=== PATIENT | female | born 1945 | race Caucasian/White ===

== ENCOUNTER 2017-08-05 09:32 | Outpatient (CLI) | payer MEDICARE ==
--- NOTE | 2017-08-05 12:55 | MMO ---
BILATERAL SCREENING MAMMOGRAM: INDICATION: Annual exam. COMPARISON: Prior exam dated 07/17/15. FINDINGS: The interpretation of this exam was assisted with computer-aided detection. There are scattered fibroglandular elements bilaterally. There are benign-appearing calcifications bilaterally. No suspicious mass, cluster of microcalcifications, or area of architectural distortion is evident. IMPRESSION: BI-RADS category 2 - benign findings. Recommend routine annual mammographic screening. BIRADS 2: Benign Finding(s) Routine annual screening mammography (for women over age 40) POS: [facility]
== END 2017-08-05 09:33 | disposition home or self-care (01) ==
LOC: SCSMAMMO 09:32
PROVIDERS: ATTEND Family Medicine
DX: Z12.31 Encounter for screening mammogram for malignant neoplasm of breast (principal)
CPT/HCPCS: 77067

== ENCOUNTER 2018-05-10 10:28 | Emergency (ER) | payer MEDICARE ==
[2018-05-10] MEDS ORDERED: Bacitracin Zinc 1 Packet ONE (11:46)
--- NOTE | 2018-05-10 13:04 | CT ---
CT BRAIN WITHOUT CONTRAST: Date: 05/10/18 HISTORY: Fall, headache. FINDINGS: No evidence of infarct, hemorrhage, midline shift, or abnormal extra-axial fluid collections are seen . The ventricular size is normal and the basilar cisterns are patent. The bony calvarium is intact. T here is mucosal disease in the paranasal sinuses. IMPRESSION: No CT evidence of acute intracranial process. POS: [facility]
== END 2018-05-10 12:38 | disposition home or self-care (01) ==
LOC: SCSER 10:28
DX: S00.93XA Contusion of unspecified part of head, initial encounter (principal); S80.211A Abrasion, right knee, initial encounter; I48.91 Unspecified atrial fibrillation; Z79.899 Other long term (current) drug therapy; Z79.01 Long term (current) use of anticoagulants; W19.XXXA Unspecified fall, initial encounter
CPT/HCPCS: 70450

== ENCOUNTER 2018-08-06 09:56 | Outpatient (CLI) | payer MEDICARE ==
--- NOTE | 2018-08-06 11:41 | MMO ---
Bilateral MAMMO Bilat Screen [facility]. CLINICAL HISTORY: Patient is 73 years old and is seen for screening. The patient has no family history of breast cancer. The patient has no personal history of cancer. VIEWS: The views performed were: bilateral craniocaudal and bilateral mediolateral oblique. FILMS COMPARED: The present examination has been compared to prior imaging studies performed at [facility] on 07/26/2013, 07/12/2014, 07/17/2015, 08/05/2016 and 08/05/2017. This study has been interpreted with the assistance of computer-aided detection. MAMMOGRAM FINDINGS: There are scattered fibroglandular densities. There are no suspicious masses, suspicious calcifications, or new areas of architectural distortion. IMPRESSION: THERE IS NO MAMMOGRAPHIC EVIDENCE OF MALIGNANCY. A ROUTINE FOLLOW-UP MAMMOGRAM IN 1 YEAR IS RECOMMENDED. ACR BI-RADS Category 1 - Negative MAMMOGRAPHY NOTE: 1. A negative mammogram report should not delay a biopsy if a dominant of clinically suspicious mass is present. 2. Approximately 10% to 15% of breast cancers are not detected by mammography. 3. Adenosis and dense breasts may obscure an underlying neoplasm.
== END 2018-08-06 09:57 | disposition home or self-care (01) ==
LOC: SCSMAMMO 09:56
PROVIDERS: ATTEND Family Medicine
DX: Z12.31 Encounter for screening mammogram for malignant neoplasm of breast (principal)
CPT/HCPCS: 77067

== ENCOUNTER 2018-09-28 07:42 | Emergency (ER) | payer MEDICARE | END 2018-09-28 08:38 | disposition home or self-care (01) | LOC: SCSER 07:42 | DX: I10 Essential (primary) hypertension (principal); I48.91 Unspecified atrial fibrillation; Z79.01 Long term (current) use of anticoagulants; Z79.899 Other long term (current) drug therapy | CPT/HCPCS: 99283 ==

== ENCOUNTER 2019-02-10 17:53 | Inpatient (IN) | payer MEDICARE ==
[2019-02-10 18:30] LABS: #Basophils 0.1 thou/uL (0.0-0.2); #Lymphocytes 2.3 thou/uL (1.20-3.40); #Monocytes 0.6 thou/uL (0.11-0.59); #Neutrophils 11.5 thou/uL (1.40-6.50); %Basophils 0.8 % (0.0-1.0); %Eosinophils 0.3 % (0.0-10.0); %Lymphocytes 15.9 % (21.0-51.0); Hemoglobin 13.7 g/dL (12.0-16.0); Mean Corpuscular HGB CONC 32.4 g/dL (32.0-36.0); Mean Corpuscular Hemoglobin 31.1 pg (27.0-31.0); Mean Corpuscular Volume 96.1 fL (78.0-98.0); Mean Platelet Volume 8.7 fL (7.4-10.4); Platelet Count 206 thou/uL (130-400); RBC Distribution Width 12.3 % (11.5-14.5); Red Blood Cell (RBC) Count 4.41 mill/uL (4.20-5.40); White Blood Cell (WBC) Count 14.5 thou/uL (4.8-10.8)
[2019-02-10] MEDS ORDERED: Morphine 10 MG/ML VIAL ONE (18:33)
[2019-02-10 18:46] LABS: ALT (SGPT) 14 U/L (8-55); AST (SGOT) 12 U/L (5-34); Albumin 4.2 g/dL (3.4-4.8); Alkaline Phosphatase 82 U/L (40-110); Anion Gap 15 mmol/L (10-20); BUN (Urea Nitrogen) 20 mg/dL (9.8-20.1); Bilirubin, Total 0.5 mg/dL (0.2-1.2); Calc. Creatinine Clearance 0 mL/min (70-130); Calcium 9.4 mg/dL (7.8-10.44); Carbon Dioxide 26 mmol/L (23-31); Chloride 103 mmol/L (98-107); Estimated GFR-MDRD 75; Globulin 3.1 g/dL (2.4-3.5); Glucose 132 mg/dL (83-110); Potassium 3.9 mmol/L (3.5-5.1); Protein, Total 7.3 g/dL (6.0-8.3); Sodium 140 mmol/L (136-145)
[2019-02-10] MEDS ORDERED: Sodium Chloride 0.9% 100 ML ONE (18:47)
[2019-02-10] MEDS ORDERED: Piperacillin/Tazobactam 4.5 GM VIAL ONE (18:47)
[2019-02-10] MEDS ORDERED: Clindamycin/D5W 900 mg/50 ml Premix Bag ONE (19:20)
[2019-02-10] MEDS ORDERED: Lorazepam 2 MG/ML VIAL ONE (23:13)
[2019-02-11] MEDS ORDERED: Ibuprofen 200 MG TAB PO PRN (00:25)
[2019-02-11] MEDS ORDERED: hydrALAZINE 20 MG/ML VIAL SLOW IVP PRN (00:25)
[2019-02-11] MEDS ORDERED: Ondansetron PF 4 MG/2 ML Vial IVP PRN (00:25)
[2019-02-11] MEDS ORDERED: HYDROcodone/Acetaminophen 7.5/325 mg Tablet PO PRN (00:25)
[2019-02-11] MEDS ORDERED: Ondansetron ODT 4 MG TAB PO PRN (00:25)
[2019-02-11] MEDS ORDERED: Acetaminophen 500 MG TAB PO PRN (00:25)
[2019-02-11 02:07] VITALS: BMI 34.2
[2019-02-11] MEDS: Piperacillin/Tazobactam 3.375 GM in Sodium Chloride 0.9% 100 ML IVPB SCH ×4 (03:28→21:47)
[2019-02-11] MEDS ORDERED: Piperacillin/Tazobactam 3.375 GM in Sodium Chloride 0.9% 100 ML IVPB SCH (06:00)
[2019-02-11 06:19] LABS: Anion Gap 8 mmol/L (10-20); BUN (Urea Nitrogen) 14 mg/dL (9.8-20.1); Calc. Creatinine Clearance 117 mL/min (70-130); Calcium 8.6 mg/dL (7.8-10.44); Carbon Dioxide 27 mmol/L (23-31); Chloride 106 mmol/L (98-107); Estimated GFR-MDRD 84; Glucose 124 mg/dL (83-110); Sodium 137 mmol/L (136-145)
[2019-02-11 06:28] LABS: Band 11 % (5-11); Lymphocytes 7 % (21-51); MDiff Complete? YES; Mean Corpuscular HGB CONC 34.4 g/dL (32.0-36.0); Mean Corpuscular Hemoglobin 32.5 pg (27.0-31.0); Mean Corpuscular Volume 94.5 fL (78.0-98.0); Mean Platelet Volume 7.5 fL (7.4-10.4); Monocytes 5 % (0-10); Neutrophil 77 % (42-75); Platelet Count 177 thou/uL (130-400); RBC Distribution Width 11.9 % (11.5-14.5); Red Blood Cell (RBC) Count 3.69 mill/uL (4.20-5.40); White Blood Cell (WBC) Count 11.9 thou/uL (4.8-10.8)
[2019-02-11] MEDS: Famotidine 20 MG TAB PO SCH ×2 (08:42→20:26)
[2019-02-11] MEDS: Losartan 25 MG TAB PO SCH (08:42)
[2019-02-11] MEDS: Multivit, Therapeutic 1 TAB PO SCH (08:42)
[2019-02-11] MEDS: Vancomycin HCl 1 GM in Premix Bag 1 BAG IVPB SCH ×2 (08:43→20:27)
--- NOTE | 2019-02-11 08:54 | HP ---
PRIMARY CARE PROVIDER: Dr. Andrae Andres. CHIEF COMPLAINT: Right lower extremity pain. HISTORY OF PRESENT ILLNESS: This is a 73-year-old female, who presents to [facility] complaining of right lower extremity pain, swelling, redness, and warmth, which began in the last 24 hours. The patient states that she originally scraped her right lower leg on a adventism pew tearing the skin on the surface. She was evaluated by her primary care provider, who did local debridement and placed her on Bactrim DS for approximately seven days. The patient states the wound improved and the leg seemed to heal appropriately. On 02/10/2019, the patient noted her leg to be warm to touch and noticeably red with associated fever, chills, and body aches. The patient presented to the emergency room and was noted with cellulitis of the right lower extremity. The patient received vancomycin, clindamycin, and Zosyn in the emergency room. The patient denied any recent travel history, exposures, or family members with similar symptoms. PAST MEDICAL HISTORY: 1. Atrial fibrillation, status post cardiac ablation on chronic anticoagulation with Xarelto. 2. Hypertension. 3. Chronic kidney disease, stage 2. PAST SURGICAL HISTORY: Status post cardiac ablation secondary to atrial fibrillation. CURRENT MEDICATIONS: 1. Losartan 12.5 mg p.o. daily. 2. Xarelto 20 mg p.o. daily. ALLERGIES: NO KNOWN DRUG ALLERGIES. FAMILY HISTORY: Positive for hypertension. SOCIAL HISTORY: , resides in [place], [place]. Retired. No current alcohol, tobacco, or illicit drug use. REVIEW OF SYSTEMS: CONSTITUTIONAL: Negative for weight loss or gain, ability to conduct usual activities. SKIN: Negative for rash, itching. EYES: Negative for double vision, pain. ENT/MOUTH: Negative for nose bleeding, neck stiffness, pain, tenderness. CARDIOVASCULAR: Negative for palpitations, dyspnea on exertion, orthopnea. RESPIRATORY: Negative for shortness of breath, wheezing, cough, hemoptysis, fever or night sweats. GASTROINTESTINAL: Negative for poor appetite, abdominal pain, heartburn, nausea, vomiting, constipation, or diarrhea. GENITOURINARY: Negative for urgency, frequency, dysuria, nocturia. MUSCULOSKELETAL: Negative for pain, swelling. NEUROLOGIC/PSYCHIATRIC: Negative for anxiety, depression. ALLERGY/IMMUNOLOGIC: Negative for skin rash, bleeding tendency. Otherwise negative except as stated per HPI. PHYSICAL EXAMINATION: VITAL SIGNS: On admission, blood pressure 145/76, pulse 80, respiratory rate 17, temperature 99.0 degrees Fahrenheit, and O2 saturation 99% on room air. GENERAL APPEARANCE: This is a 73-year-old female, alert, and oriented x3, pleasant, responsive, in no acute distress. HEENT: Pupils are equal, round, reactive to light and accommodation. Extraocular muscles are intact. No scleral icterus. No conjunctival injection. Nares are patent. OP is clear. Teeth in good repair. NECK: Supple. No cervical adenopathy. No thyromegaly. No carotid bruits. No JVD appreciated. Cervical spine with full active and passive range of motion. No meningeal signs noted. CHEST: Lungs are clear to auscultation bilaterally. CARDIOVASCULAR: S1 and S2 without noted murmur, rub, or gallop. ABDOMEN: Obese, soft, nontender, and nondistended. Bowel sounds are positive in all 4 quadrants. There is no hepatosplenomegaly. No abdominal bruits. No rebound or guarding appreciated. EXTREMITIES: Right lower extremity with erythema with warmth to touch of the lower third of the anterior morales and circumferential area approximately 80% of the circumference of the right lower leg. Positive tenderness to palpation. Small dried abrasion on the anterior morales noted. No expressible discharge. Pulses palpable distally at the dorsalis pedis, posterior tibial, and popliteal arteries bilaterally. Capillary refill less than 2 seconds. NEUROLOGIC: Cranial nerves 2 through 12 are grossly intact. No focal or lateralizing signs appreciated. PERTINENT LABORATORY AND X-RAY FINDINGS: Basic metabolic profile within normal limits. Lactic acid level 1.4. LFTs within normal limits. CBC showed a white blood cell count of 14.5, hemoglobin 14, hematocrit 42, platelet count 206 with 79% neutrophils. D-dimer 0.43. ASSESSMENT/PLAN: 1. Right lower extremity cellulitis. We will admit to the medical floor. Continue vancomycin 1 g IV q.12 hours with additional Zosyn 3.375 g IV q.6 hours. Await blood culture results. Continue serial monitoring. 2. Hypertension. Resume losartan 12.5 mg p.o. daily. Serial blood pressure monitoring. 3. Chronic anticoagulation. Continue Xarelto 20 mg p.o. daily. 4. Chronic kidney disease, stage 2. Avoid nephrotoxic agents and limit contrast exposure. Repeat creatinine in the a.m. 5. Prophylaxis. Hold SCDs due to right lower extremity cellulitis. Pepcid 20 mg p.o. b.i.d. 6. Code status is full. Surrogate medical decision maker is the patient's spouse. Job ID: [id number]
--- NOTE | 2019-02-11 17:41 | PDOC.EVN ---
Event Note - Event Note Event Note: Seen and examined. Continue IV antibiotics. await cultures.
[2019-02-11] MEDS: Rivaroxaban 10 MG TAB PO SCH (20:26)
[2019-02-12] MEDS: Piperacillin/Tazobactam 3.375 GM in Sodium Chloride 0.9% 100 ML IVPB SCH (04:47)
[2019-02-12 07:17] LABS: #Basophils 0.1 thou/uL (0.0-0.2); #Eosinphils 0.1 thou/uL (0.0-0.7); #Lymphocytes 1.9 thou/uL (1.20-3.40); #Monocytes 0.7 thou/uL (0.11-0.59); #Neutrophils 3.6 thou/uL (1.40-6.50); %Eosinophils 0.8 % (0.0-10.0); %Lymphocytes 29.9 % (21.0-51.0); %Monocytes 11.5 % (0.0-10.0); %Neutrophils 56.8 % (42.0-75.0); Hemoglobin 12.2 g/dL (12.0-16.0); Mean Corpuscular HGB CONC 33.7 g/dL (32.0-36.0); Mean Corpuscular Hemoglobin 32.1 pg (27.0-31.0); Mean Corpuscular Volume 95.1 fL (78.0-98.0); Mean Platelet Volume 7.4 fL (7.4-10.4); Platelet Count 178 thou/uL (130-400); RBC Distribution Width 11.8 % (11.5-14.5); Red Blood Cell (RBC) Count 3.81 mill/uL (4.20-5.40); White Blood Cell (WBC) Count 6.4 thou/uL (4.8-10.8)
[2019-02-12] MEDS: Losartan 25 MG TAB PO SCH (08:10)
[2019-02-12] MEDS: Multivit, Therapeutic 1 TAB PO SCH (08:11)
[2019-02-12] MEDS: Famotidine 20 MG TAB PO SCH ×2 (08:11→19:59)
[2019-02-12] MEDS: Vancomycin HCl 1 GM in Premix Bag 1 BAG IVPB SCH (08:12)
[2019-02-12] MEDS: Linezolid 600 MG TAB PO SCH ×2 (12:16→19:59)
--- NOTE | 2019-02-12 19:40 | PDOC.HOSPP ---
- Subjective Encounter Date: 02/12/19 Encounter Time: 09:38 Subjective: 73 y/o female with atrial fibrillation s/p ablation on chronic anticoagulation admitted with acute worsening of right leg redness after completion of oral antibiotics. Impression of cellulitis was made and she was started on be=road spectrum antibiotics. Feeling better. - Objective Vital Signs & Weight: Vital Signs (12 hours) Temp Pulse Resp BP Pulse Ox 02/12/19 08:03 98.3 F 74 20 120/71 95 Weight Weight 218 lb 7 oz I&O: 02/11/19 02/12/19 02/13/19 06:59 06:59 06:59 Intake Total 880 1120 Balance 880 1120 Result Diagrams: 02/12/19 07:02 02/11/19 05:40 Hospitalist ROS - Medication Medications: Active Medications Generic Name Dose Route Start Last Admin Trade Name Freq PRN Reason Stop Dose Admin Acetaminophen 1,000 mg 02/11/19 00:25 02/12/19 08:12 Tylenol PO 1,000 mg Q6H PRN Administration Mild Pain (1-3) Famotidine 20 mg 02/11/19 09:00 02/12/19 08:11 Pepcid PO 20 mg BID AMEE Administration Linezolid 600 mg 02/12/19 09:00 02/12/19 12:16 Zyvox PO 600 mg Q12HR AMEE Administration Losartan Potassium 12.5 mg 02/11/19 09:00 02/12/19 08:10 Cozaar PO 12.5 mg DAILY AMEE Administration Multivitamins 1 tab 02/11/19 09:00 02/12/19 08:11 Theragran PO 1 tab DAILY AMEE Administration Rivaroxaban 20 mg 02/11/19 21:00 02/11/19 20:26 Xarelto PO 20 mg QPM AMEE Administration - Exam General Appearance: awake alert Eye: PERRL, anicteric sclera ENT: normocephalic atraumatic Neck: supple, symmetric, no JVD Heart: RRR Respiratory: no wheezes, no rales, no ronchi, normal chest expansion, no tachypnea Gastrointestinal: soft, non-tender, non-distended, normal bowel sounds Extremities: no cyanosis, no edema Skin - other findings: regressing right distal leg erythema noted Neurological: cranial nerve grossly intact, no focal deficits Psychiatric: normal affect, A&O x 3 Hosp A/P (1) Cellulitis of right leg Code(s): L03.115 - CELLULITIS OF RIGHT LOWER LIMB Status: Acute (2) HTN (hypertension) Code(s): I10 - ESSENTIAL (PRIMARY) HYPERTENSION Status: Acute (3) Chronic anticoagulation Code(s): Z79.01 - ALF (CURRENT) USE OF ANTICOAGULANTS Status: Acute (4) Leg pain Status: Acute - Plan Startr oral Linezolid. DC IV zosyn and vancomycin. For discharge tomorrow if erythema continues to regress on oral antibiotics. Continue analgesic and limb elevation
[2019-02-12] MEDS: Rivaroxaban 10 MG TAB PO SCH (19:59)
[2019-02-13 06:40] LABS: #Basophils 0.1 thou/uL (0.0-0.2); #Eosinphils 0.1 thou/uL (0.0-0.7); #Lymphocytes 1.8 thou/uL (1.20-3.40); #Monocytes 0.5 thou/uL (0.11-0.59); #Neutrophils 3.3 thou/uL (1.40-6.50); %Basophils 1.2 % (0.0-1.0); %Lymphocytes 30.8 % (21.0-51.0); %Monocytes 8.9 % (0.0-10.0); %Neutrophils 57.2 % (42.0-75.0); Hemoglobin 12.4 g/dL (12.0-16.0); Mean Corpuscular HGB CONC 33.8 g/dL (32.0-36.0); Mean Corpuscular Hemoglobin 32.1 pg (27.0-31.0); Mean Corpuscular Volume 94.9 fL (78.0-98.0); Mean Platelet Volume 7.9 fL (7.4-10.4); Platelet Count 188 thou/uL (130-400); RBC Distribution Width 11.7 % (11.5-14.5); Red Blood Cell (RBC) Count 3.87 mill/uL (4.20-5.40); White Blood Cell (WBC) Count 5.8 thou/uL (4.8-10.8)
[2019-02-13] MEDS: Losartan 25 MG TAB PO SCH (08:38)
[2019-02-13] MEDS: Linezolid 600 MG TAB PO SCH (08:39)
[2019-02-13] MEDS: Multivit, Therapeutic 1 TAB PO SCH (08:39)
[2019-02-13] MEDS: Famotidine 20 MG TAB PO SCH (08:39)
[2019-02-13] MEDS ORDERED: hydrOXYzine 25 MG TAB PO SCH (10:45)
[2019-02-13 11:04] VITALS: BP 124/72; TEMP 97.8
--- NOTE | 2019-02-13 15:41 | DIS ---
DATE OF ADMISSION: 02/10/2019 DATE OF DISCHARGE: 02/13/2019 PRIMARY CARE PHYSICIAN: Dr. Andrae Andres. DISCHARGE DIAGNOSES: 1. Right leg cellulitis. present on admission. 2. Hypertension. 3. Chronic anticoagulation with Xarelto. 4. Atrial fibrillation, status post ablation. 5. Left leg pain. HOSPITAL COURSE: A 73-year-old female with known history of atrial fibrillation , status post ablation on chronic anticoagulation, admitted with acute worsening of right leg redness. The patient was recently diagnosed with right leg cellulitis and started on oral antibiotics, which she completed with improvement in the right leg cellulitis and erythema. However, a day after completion of antibiotics, the patient reported worsening redness associated with severe pain hence presentation to the ER, where she was found to have cellulitis. The patient was started on broad-spectrum antibiotic therapy with intravenous vancomycin and Zosyn with improvement of symptoms. She was later transitioned to oral linezolid and observed in the hospital with continued regression of the erythema, hence was subsequently discharged home. PHYSICAL EXAMINATION: VITAL SIGNS: Temperature 97.8, pulse rate 81, respiratory rate 20, SpO2 of 94% on room air, and blood pressure is 124/72. GENERAL: Obese female, in no obvious distress. Afebrile. Anicteric. Acyanotic. HEENT: Normocephalic and atraumatic. Oral mucosa is moist. CARDIOVASCULAR: Regular rhythm and rate with normal heart sounds, one and two. Soft systolic murmur noted. RESPIRATORY: Good air entry bilaterally with no crackle or rhonchi or use of accessory muscles. GI: Obese, soft, nontender, and nondistended with normal bowel sounds. EXTREMITIES: Right distal leg regressing erythema noted. Mild anterior leg tenderness noted. Other extremities are grossly normal, atraumatic with no edema or erythema. TELEVISION REPORTER: Conscious, alert, and oriented x3 with appropriate mental status. Cranial nerves II through XII are grossly intact. The patient is ambulant. DISCHARGE CONDITION: Improved. DISCHARGE DISPOSITION: Home. FOLLOWUP: With PCP in 7 days. DISCHARGE MEDICATIONS: 1. Losartan 12.5 mg p.o. daily. 2. Multivitamin two tablets p.o. daily. 3. Xarelto 20 mg p.o. daily at bedtime. 4. Linezolid 600 mg b.i.d. for 10 days. 5. Acetaminophen 1000 mg p.o. q.6 p.r.n. for pain. 6. Discharge took more than 30 minutes. Job ID: [id number] MTDD
--- NOTE | 2019-02-14 22:50 | PQF ---
MEÑO BRYANT OBI, CHIZOBA C [id number] CLINICAL DOCUMENTATION CLARIFICATION FORM: POST DISCHARGE Addendum to original discharge summary date: ____ Late entry note date: __ DATE: 02/14/19 ATTN: Jenaro Cueva Obi Please exercise your independent, professional judgment in responding to the clarification form. Clinical indicators are provided on the bottom of this form for your review Can you please further clarify if right lower extremity cellulitis is a complication of recent debridement of not? Please check appropriate box(s): [ ] Right lower extremity cellulitis is a complication of recent debridement [ ] Right lower extremity cellulitis is not a complication of recent debridement [ ] Other diagnosis [ x ] Unable to determine In addition, please specify: Present on Admission (POA): [ x ] Yes [ ] No [ ] Unable to determine CLINICAL INDICATORS - SIGNS / SYMPTOMS / LABS H and P pg.1- Complaining of right lower extremity pain, swelling, redness and warmth which began I the last 24hours H and P pg.1- She was evaluated by her primary care provider, who did local debridement and placed her on bactrim DS for approximately 7 days. H and P pg.1- 02/10/19 the patient noted her leg to be warm to touch and noticeably red with fever, chills and body aches RISK FACTORS Right lower extremity Cellulitis- H and P pg.3 Hypertension- H and P pg1 CKD 3- H and P pg.1.1 Atrial fibrillation- H and P pg.1 TREATMENT: IV Fluids- MAY 31 Broad spectrum antibiotics- DS pg.1 (This form is maintained as a part of the permanent medical record) 2014 [employer]. All Rights Reserved David [email or web address] [not provided] MTDD
== END 2019-02-13 11:16 | disposition home or self-care (01) | DRG 603 ==
LOC: SCSER 17:53 → T4-A 19:08
PROVIDERS: ADMIT Internal Medicine; ATTEND Internal Medicine
DX: L03.115 Cellulitis of right lower limb (principal); I48.91 Unspecified atrial fibrillation; I12.9 Hypertensive chronic kidney disease with stage 1 through stage 4 chronic kidney disease, or unspecified chronic kidney disease; N18.2 Chronic kidney disease, stage 2 (mild); E66.9 Obesity, unspecified; Z79.01 Long term (current) use of anticoagulants; Z68.34 Body mass index [BMI] 34.0-34.9, adult
CPT/HCPCS: 36415; 80048; 80053; 83605; 85007; 85025; 85027; 85379; 87040; 90471; 90662; 96365; 96366; 96368; 96375; G0008; J2060; J2270; J2543; J3370; J3490

== ENCOUNTER 2019-12-05 06:25 | Outpatient (CLI) | payer MEDICARE, OTHER ==
[2019-12-05 10:59] LABS: #Basophils 0.1 thou/uL (0.0-0.2); #Eosinphils 0.2 thou/uL (0.0-0.7); #Monocytes 0.5 thou/uL (0.11-0.59); %Basophils 1.2 % (0.0-1.0); %Eosinophils 2.4 % (0.0-10.0); %Lymphocytes 25.4 % (21.0-51.0); %Monocytes 6.9 % (0.0-10.0); %Neutrophils 64.1 % (42.0-75.0); Hemoglobin 14.5 g/dL (12.0-16.0); Mean Corpuscular Hemoglobin 31.9 pg (27.0-31.0); Mean Corpuscular Volume 96.7 fL (78.0-98.0); Mean Platelet Volume 8.5 fL (7.4-10.4); Platelet Count 220 thou/uL (130-400); RBC Distribution Width 12.1 % (11.5-14.5); Red Blood Cell (RBC) Count 4.54 mill/uL (4.20-5.40); White Blood Cell (WBC) Count 7.8 thou/uL (4.8-10.8)
[2019-12-05 11:41] LABS: BUN (Urea Nitrogen) 17 mg/dL (9.8-20.1); Calc. Creatinine Clearance 0 mL/min (70-130); Carbon Dioxide 24 mmol/L (23-31); Chloride 106 mmol/L (98-107); Estimated GFR-MDRD 80; Glucose 117 mg/dL (83-110); Potassium 4.1 mmol/L (3.5-5.1); Sodium 141 mmol/L (136-145)
[2019-12-05 12:44] LABS: Anion Gap 15 mmol/L (10-20)
[2019-12-05 16:53] LABS: SARS-CoV-2 MS2 Positive; SARS-CoV-2 N Gene Negative; SARS-CoV-2 S Gene Negative; SARS-CoV-2 by NAA Not Detected (NotDetected); SARS-CoV-2 orf1ab Negative
== END 2019-12-05 06:26 | disposition home or self-care (01) ==
LOC: LABBT 06:25
PROVIDERS: ATTEND Internal Medicine Cardiovascular Disease
DX: Z01.812 Encounter for preprocedural laboratory examination (principal); Z20.828 Contact with and (suspected) exposure to other viral communicable diseases; I48.91 Unspecified atrial fibrillation
CPT/HCPCS: 80048; 85025; U0003; 87635

== ENCOUNTER 2019-12-08 10:52 | Day surgery (SDC) | payer MEDICARE ==
[2019-12-05 15:46] VITALS: BMI 34.2
[2019-12-08] MEDS ORDERED: PROPOFOL 20 ML ONE (11:58)
--- NOTE | 2019-12-10 08:04 | TCOM ---
DATE OF STUDY: 12/08/2019 PREOPERATIVE DIAGNOSIS: Atrial fibrillation. POSTOPERATIVE DIAGNOSIS: Sinus rhythm. PROCEDURES PERFORMED: Synchronized cardioversion. DESCRIPTION OF OPERATION: Ms. Keith was seen an outpatient for the above procedure. Consent was noted. I discussed the procedure in the full detail Ms. Keith as an outpatient. The patient underwent successful synchronized cardioversion on the propofol at 150 joules. IMPRESSION: Successful synchronized cardioversion. Job ID: [id number]
--- NOTE | 2019-12-12 15:26 | EKG ---
Test Reason : POST CARDIOVERSION Blood Pressure : / mmHG Vent. Rate : 064 BPM Atrial Rate : 064 BPM P-R Int : 210 ms QRS Dur : 090 ms QT Int : 438 ms P-R-T Axes : 078 -06 023 degrees QTc Int : 451 ms Sinus rhythm with 1st degree A-V block Possible Inferior infarct , age undetermined Abnormal ECG Confirmed by LAUREN CALLES M.D. ([id number]) on 12/12/2019 3:25:35 PM Referred By: YURI Confirmed By:LAUREN CALLES M.D.
== END 2019-12-08 13:20 | disposition home or self-care (01) ==
LOC: SDC 10:52
PROVIDERS: ATTEND Internal Medicine Cardiovascular Disease
PROC: 5A2204Z Restoration of Cardiac Rhythm, Single (ICD-10-PCS; principal; 2019-12-08)
DX: I48.0 Paroxysmal atrial fibrillation (principal); I34.0 Nonrheumatic mitral (valve) insufficiency; I10 Essential (primary) hypertension; F40.240 Claustrophobia; Z79.01 Long term (current) use of anticoagulants; Z79.899 Other long term (current) drug therapy
CPT/HCPCS: 92960; 93005; 93010; J2704

== ENCOUNTER 2022-04-29 11:14 | Outpatient (CLI) | payer MEDICARE ==
[2022-04-29 12:49] LABS: Mean Corpuscular HGB CONC 33.6 g/dL (32.0-36.0); Mean Corpuscular Hemoglobin 32.1 pg (27.0-33.0); Mean Corpuscular Volume 95.6 fl (81.6-98.3); Mean Platelet Volume 10.4 fl (7.4-10.4); Platelet Count 205 10x3/uL (150-450); RBC Distribution Width 12.3 % (11.5-14.5); Red Blood Cell (RBC) Count 4.36 10x6/uL (3.90-5.03)
[2022-04-29 12:51] LABS: Bilirubin Neg (Negative); Blood, Urine 10 (Negative); Clarity Slightly Cloudy (Clear); Glucose, Urine (Dipstick) Normal (Negative); Ketone, Urine Negative (Negative); Leukocyte 100 (Negative); Nitrite Negative (Negative); Protein, Urine (Dipstick) Negative (Neg-Trace); Urobilinogen Normal mg/dL (Less than 2); pH, Urine 6.5 (5.0-9.0)
[2022-04-29 13:03] LABS: INR-International Normal Ratio 1.1; PTT 28.9 sec (22.0-33.0); Prothrombin Time 11.5 sec (9.5-12.1)
[2022-04-29 13:11] LABS: ALT (SGPT) 19 U/L (8-55); AST (SGOT) 22 U/L (5-34); Alkaline Phosphatase 66 U/L (40-110); Anion Gap 13 mmol/L (10-20); BUN (Urea Nitrogen) 14 mg/dL (9.8-20.1); Bilirubin, Total 0.6 mg/dL (0.2-1.2); Calc. Creatinine Clearance 0 mL/min (70-130); Calcium 8.8 mg/dL (7.8-10.44); Carbon Dioxide 25 mmol/L (23-31); Chloride 106 mmol/L (98-107); Estimated GFR 87; Globulin 2.9 g/dL (2.4-3.5); Glucose 86 mg/dL (83-110); Potassium 4.4 mmol/L (3.5-5.1); Protein, Total 6.9 g/dL (5.8-8.1); Sodium 140 mmol/L (136-145)
== END 2022-04-29 11:15 | disposition home or self-care (01) ==
LOC: LABBT 11:14
PROVIDERS: ATTEND Internal Medicine Cardiovascular Disease
DX: Z01.818 Encounter for other preprocedural examination (principal); I48.91 Unspecified atrial fibrillation
CPT/HCPCS: 80053; 81003; 85027; 85610; 85730; 93005; 93010

== ENCOUNTER 2022-04-29 11:30 | Inpatient (IN) | payer MEDICARE ==
[2022-05-05 09:56] VITALS: BMI 36.0
[2022-05-07] MEDS ORDERED: Midazolam HCl 2 mg/2 ml Vial ONE ×2 (06:48→07:54)
[2022-05-07] MEDS ORDERED: SUGAMMADEX SODIUM 200 MG/2 ML VIAL ONE (06:49)
[2022-05-07] MEDS ORDERED: Norepinephrine 4 MG/4 ML VIAL ONE (06:49)
[2022-05-07] MEDS ORDERED: fentaNYL PF 100 MCG/2 ML SYRINGE ONE (06:49)
[2022-05-07] MEDS ORDERED: PROPOFOL 200 MG/20 ML VIAL ONE (07:57)
[2022-05-07] MEDS ORDERED: Dexamethasone 20 MG/5 ML VIAL ONE (07:57)
[2022-05-07] MEDS ORDERED: Ondansetron PF 4 MG/2 ML Vial ONE (07:57)
[2022-05-07] MEDS ORDERED: Rocuronium Bromide 10 MG/ML (10ML VIAL) ONE (07:57)
[2022-05-07] MEDS ORDERED: Lidocaine 1% PF 5 ML VIAL ONE (07:57)
[2022-05-07] MEDS ORDERED: Iopamidol 370 76% 100 ML VIAL ONE (08:56)
[2022-05-07] MEDS ORDERED: Protamine Sulfate 50 MG/5 ML VIAL ONE (11:00)
[2022-05-07] MEDS ORDERED: Heparin 10,000 UNITS/ 10 ML VIAL ONE (11:00)
[2022-05-07] MEDS ORDERED: CEFAZOLIN 1 GM VIAL ONE (11:00)
[2022-05-07] MEDS ORDERED: Acetaminophen/Codeine 30-300mg Tablet ONE (11:08)
== END 2022-05-07 14:53 | disposition home or self-care (01) | DRG 274 ==
LOC: SURG A 05-07 05:37
PROVIDERS: ADMIT Internal Medicine Cardiovascular Disease; ATTEND Internal Medicine Cardiovascular Disease
PROC: 02L73DK Occlusion of Left Atrial Appendage with Intraluminal Device, Percutaneous Approach (ICD-10-PCS; principal; 2022-05-07)
PROC: B24BZZ4 Ultrasonography of Heart with Aorta, Transesophageal (ICD-10-PCS; 2022-05-07)
DX: I48.19 Other persistent atrial fibrillation (principal); Z00.6 Encounter for examination for normal comparison and control in clinical research program; I10 Essential (primary) hypertension; Z79.01 Long term (current) use of anticoagulants; Z79.899 Other long term (current) drug therapy
CPT/HCPCS: 33340; 36415; 85347; 86850; 86900; 86901; 93306; 93312; C1759; C1760; C1769; C1894; J0690; J1100; J1644; J2250; J2405; J2704; J2720; Q9967

== ENCOUNTER 2022-06-18 05:45 | Day surgery (SDC) | payer MEDICARE ==
[2022-06-16 15:30] VITALS: BMI 36.0
[2022-06-18 06:44] LABS: #Basophils 0.1 thou/uL (0.0-0.2); #Eosinphils 0.1 thou/uL (0.0-0.7); #Monocytes 0.4 thou/uL (0.11-0.59); #Neutrophils 2.5 thou/uL (1.40-6.50); %Basophils 1.2 % (0.0-1.0); %Lymphocytes 39.2 % (21.0-51.0); %Monocytes 8.6 % (0.0-10.0); %Neutrophils 49.1 % (42.0-75.0); Hemoglobin 14.4 g/dL (12.0-16.0); Mean Corpuscular HGB CONC 34.4 g/dL (32.0-36.0); Mean Corpuscular Volume 95.9 fl (78.0-98.0); Mean Platelet Volume 7.5 fL (7.4-10.4); Platelet Count 184 10x3/uL (130-400); RBC Distribution Width 11.3 % (11.5-14.5); Red Blood Cell (RBC) Count 4.36 mill/uL (4.20-5.40); White Blood Cell (WBC) Count 5.1 10x3/uL (4.8-10.8)
[2022-06-18 07:02] LABS: Anion Gap 13 mmol/L (10-20); BUN (Urea Nitrogen) 16 mg/dL (9.8-20.1); Calc. Creatinine Clearance 113 mL/min (70-130); Calcium 8.9 mg/dL (7.8-10.44); Carbon Dioxide 23 mmol/L (23-31); Chloride 108 mmol/L (98-107); Estimated GFR 89; Glucose 106 mg/dL (83-110); Sodium 140 mmol/L (136-145)
[2022-06-18] MEDS ORDERED: PROPOFOL 200 MG/20 ML VIAL ONE (07:33)
[2022-06-18] MEDS ORDERED: ePHEDrine Sulfate 50 MG/10 ML VIAL ONE (07:33)
== END 2022-06-18 08:55 | disposition home or self-care (01) ==
LOC: SDC 05:45
PROVIDERS: ATTEND Internal Medicine Cardiovascular Disease
PROC: B246ZZ4 Ultrasonography of Right and Left Heart, Transesophageal (ICD-10-PCS; principal; 2022-06-18)
DX: I48.19 Other persistent atrial fibrillation (principal); I08.1 Rheumatic disorders of both mitral and tricuspid valves; I10 Essential (primary) hypertension; E66.9 Obesity, unspecified; Z68.36 Body mass index [BMI] 36.0-36.9, adult; Z79.899 Other long term (current) drug therapy; Z95.818 Presence of other cardiac implants and grafts
CPT/HCPCS: 36415; 80048; 85025; 93312; J2704

== ENCOUNTER 2022-11-19 13:56 | Outpatient (CLI) | payer MEDICARE | END 2022-11-19 13:57 | disposition home or self-care (01) | LOC: ULT 13:56 | PROVIDERS: ATTEND Family Medicine | DX: M79.605 Pain in left leg (principal) | CPT/HCPCS: 36415; 85379 ==

== ENCOUNTER 2022-11-21 10:18 | Outpatient (CLI) | payer MEDICARE | END 2022-11-21 10:19 | disposition home or self-care (01) | LOC: SCSCT 10:18 | PROVIDERS: ATTEND Family Medicine | DX: M47.26 Other spondylosis with radiculopathy, lumbar region (principal); M48.061 Spinal stenosis, lumbar region without neurogenic claudication; M43.16 Spondylolisthesis, lumbar region | CPT/HCPCS: 72131 ==